=== PATIENT | male | born 1955 | race Asian ===

== ENCOUNTER 2021-12-20 08:40 | Observation (INO) | payer MEDICARE ==
[2021-12-17 12:46] LABS: BASOPHILS % 0.5 % (0.0-1.0); EOSINOPHILS % 0.3 % (0.0-6.0); HEMATOCRIT 42.8 % (38.2-49.6); HEMOGLOBIN 14.5 g/dL (14.0-18.0); LYMPHOCYTES # (AUTO) 0.6 (1.0-3.2); LYMPHOCYTES % 9.6 % (18.0-39.1); MEAN CORPUSCULAR HEMOGLOBIN 30.4 pg (28-32); MEAN CORPUSCULAR HGB CONC 33.9 g/dL (31-35); MEAN CORPUSCULAR VOLUME 89.7 fL (81-99); MONOCYTES # (AUTO) 0.4 (0.2-0.8); NEUTROPHILS # (AUTO) 5.5 (2.1-6.9); NEUTROPHILS % 83.1 % (38.7-80.0); PLATELET COUNT 354 x10e3/uL (140-360); RED BLOOD COUNT 4.77 x10e6/uL (4.3-5.7); RED CELL DISTRIBUTION WIDTH 13.6 % (11.7-14.4)
[2021-12-17 13:03] LABS: INR 0.73
[2021-12-17 13:04] LABS: ANION GAP 16.5 mmol/L (8-16); CALCIUM 9.7 mg/dL (8.4-10.2); CREATININE, SERUM 1.07 mg/dL (0.72-1.25); PARTIAL THROMBOPLASTIN TIME 26.8 seconds (23.8-35.5); POTASSIUM 4.5 mmol/L (3.5-5.1)
[~2021-12-20 08:40] MED LIST: ACTOS15 MG PO; ALLOPURINOL100 MG PO; AMLODIPINE BESY10 MG PO; JARDIANCE25 MG PO; LIPITOR10 MG PO; LOSARTAN POTAS100 MG PO; METFORMIN HCL500 MG PO; RYBELSUS14 MG PO; TRAZODONE HCL50 MG PO
[2021-12-20] MEDS ORDERED: HYDROCODON-ACE1 EA12 PO (12:14)
[2021-12-20] MEDS ORDERED: CARISOPRODOL 350 MG TAB PO PRN (12:15)
[2021-12-20] MEDS ORDERED: LACTATED RINGER'S 1,000 ML IV SCH (12:15)
[2021-12-20] MEDS ORDERED: MAGNESIUM/ALUMINUM/SIMETHICONE 30 ML UDC PO PRN (12:15)
[2021-12-20] MEDS ORDERED: MORPHINE SULFATE 5 MG/ML VIAL IM PRN (12:15)
[2021-12-20] MEDS ORDERED: HYDROMORPHONE 2MG/ML 2 MG/ML ML IV PRN (12:15)
[2021-12-20] MEDS ORDERED: PROMETHAZINE HCL (IM) 25 MG/ML VIAL IM PRN (12:15)
[2021-12-20] MEDS ORDERED: ONDANSETRON HCL INJ 2MG/ML 2ML 2 MG/ML VIAL IV PRN (12:15)
[2021-12-20] MEDS ORDERED: ACETAMINOPHEN 325 MG TAB PO PRN (12:15)
[2021-12-20] MEDS ORDERED: ZOLPIDEM TARTRATE 5 MG TAB PO PRN (12:15)
[2021-12-20] MEDS ORDERED: CEPACOL SORE THROAT LOZENGES PO PRN (12:15)
[2021-12-20 13:41] VITALS: BP 142/67
[2021-12-20] MEDS: OXYCODONE/ACETAMINOPHEN 5-325 1 EACH TABLET PO PRN ×2 (13:47→20:11)
[2021-12-20] MEDS ORDERED: MIDAZOLAM HCL 2 MG/2 ML VIAL ONE (14:30)
[2021-12-20] MEDS ORDERED: FENTANYL CITRATE/PF 100MCG/2 ML INJ ONE (14:30)
[2021-12-20 16:07] VITALS: BP 142/67
[2021-12-20 16:18] VITALS: BP 148/70
[2021-12-20] MEDS: METFORMIN HCL 500 MG TAB PO SCH ×3 (17:00→20:22)
[2021-12-20] MEDS ORDERED: SEVOFLURANE INHAL SOLN 250 ML PEN BTL ONE (17:44)
[2021-12-20] MEDS ORDERED: LIDOCAINE HCL 2% LOCAL INJ 5 ML SDV VIAL INJ ONE (17:44)
[2021-12-20] MEDS ORDERED: IBUPROFEN 800 MG/200 ML BAG IV ONE (17:44)
[2021-12-20] MEDS ORDERED: LIDOCAINE HCL (LTA) 4 ML SOLN ONE (17:44)
[2021-12-20] MEDS ORDERED: DEXAMETHASONE SOD PHOS INJ 4 MG/ML SDV ONE (17:44)
[2021-12-20] MEDS ORDERED: ROCURONIUM BROMIDE 10 MG/ML 5ML VIAL IV ONE (17:44)
[2021-12-20] MEDS ORDERED: SUGAMMADEX SODIUM 200 MG/2 ML VIAL IV ONE (17:44)
[2021-12-20] MEDS ORDERED: POVIDONE IODINE 0.05% 0.05 % ML PO ONE (17:44)
[2021-12-20] MEDS ORDERED: PROPOFOL IV EMULSION 10 MG/ML 20 ML VIAL ONE (17:44)
[2021-12-20] MEDS ORDERED: ACETAMINOPHEN 1000 MG/100 ML IV ONE (17:44)
[2021-12-20] MEDS ORDERED: ONDANSETRON HCL INJ 2MG/ML 2ML 2 MG/ML VIAL ONE (17:44)
[2021-12-20 20:00] VITALS: BP 152/71
[2021-12-20 20:15] VITALS: BP 152/71
[2021-12-20] MEDS ORDERED: ATORVASTATIN 10 MG TAB PO SCH (21:00)
[2021-12-20] MEDS ORDERED: TRAZODONE HCL 50 MG TAB PO SCH (21:00)
[2021-12-21] VITALS: BP 130/69
[2021-12-21 04:00] VITALS: BP 137/72
[2021-12-21] MEDS: OXYCODONE/ACETAMINOPHEN 5-325 1 EACH TABLET PO PRN ×4 (04:12→08:54)
[2021-12-21 07:58] VITALS: BP 130/63
[2021-12-21 08:50] VITALS: BP 130/63
[2021-12-21] MEDS ORDERED: LOSARTAN POTASSIUM 100 MG TAB PO SCH (09:00)
[2021-12-21] MEDS ORDERED: AMLODIPINE BESYLATE 10 MG TAB PO SCH (09:00)
[2021-12-21] MEDS ORDERED: PIOGLITAZONE HCL 15 MG TAB PO SCH (09:00)
[2021-12-21] MEDS ORDERED: ALLOPURINOL 100 MG TAB PO SCH (09:00)
== END 2021-12-21 09:25 | disposition home or self-care (01) ==
LOC: OR 08:40 → PACU V 12:13 → MED/SURG2 13:28
PROVIDERS: ADMIT Neurological Surgery; ATTEND Neurological Surgery
DX: M48.062 Spinal stenosis, lumbar region with neurogenic claudication (principal); I10 Essential (primary) hypertension; E11.9 Type 2 diabetes mellitus without complications; Z20.822 Contact with and (suspected) exposure to COVID-19; G47.33 Obstructive sleep apnea (adult) (pediatric); E66.09 Other obesity due to excess calories; Z68.30 Body mass index [BMI] 30.0-30.9, adult
CPT/HCPCS: 36415 ×3; 63047; 63048; 71046; 72020; 80048; 82948 ×2; 85025; 85610; 85730; 86850; 86900; 88304; 88311; 93005; 99251; G0378 ×2; J0131; J0690 ×2; J1100; J2001; J2250; J2405; J2704; J3010; J7121